=== PATIENT | male | born 1990 | race Two or more races ===

== ENCOUNTER → 2024-05-01 | Outpatient (CLI) | payer BC, SELFPAY ==
[2024-05-01 09:41] LABS: Misc Send Out* See Sep Rpt
[2024-05-01 10:49] LABS: Alanine Aminotransferase 61 U/L (10-49); Albumin, Serum 4.8 gm/dL (3.5-5.0); Albumin/Globulin Ratio 1.9 (1.2-2.2); Alkaline Phosphatase 83 U/L (46-116); Anion Gap 9 (7-16); Aspartate Amino Transferase 38 U/L (0-34); BUN/Creatinine Ratio 14 Ratio (12-20); Bilirubin,Direct 0.1 mg/dL (0.0-0.3); Bilirubin,Total 0.5 mg/dL (0.3-1.2); Blood Urea Nitrogen 14 mg/dL (9-23); Calcium 9.7 mg/dL (8.3-10.6); Calcium (Corrected) 9.7 mg/dL (8.5-10.1); Carbon Dioxide 26.9 mMol/L (20.0-31.0); Cardiac Risk Estimate 3.4 RATIO (4.0-6.7); Chloride 101 mMol/L (98-107); Cholesterol 216 mg/dL (132-200); Globulin 2.5 gm/dL (2.3-3.5); Glucose 190 mg/dL (74-106); HDL Cholesterol 64 mg/dL (40-60); LDL Cholesterol,Calculated 104 mg/dL (0-130); Osmolality,Calculated 279 (275-295); Potassium 3.9 mMol/L (3.4-5.1); Sodium 137 mMol/L (136-145); Total Protein 7.3 gm/dL (5.7-8.2); Triglycerides 238 mg/dL (30-150); eGFR > 60 See Note
[2024-05-01 10:53] LABS: Glucose Estimated Average 131 mg/dL (80-131); Hemoglobin A1C 6.2 % Hgb (4.8-6.0)
[2024-05-01 11:11] LABS: Creatinine MALB Rnd Ur 72 mg/dL (30-125); Microalbumin, Random Urine < 3 mg/L (0-300)
== END | disposition home or self-care (01) ==
LOC: COPL 09:03
PROVIDERS: PCP Specialist; Referring Provider Specialist; Visit Provider Specialist
DX: K76.0 Fatty (change of) liver, not elsewhere classified (principal); E11.65 Type 2 diabetes mellitus with hyperglycemia; E78.2 Mixed hyperlipidemia
CPT/HCPCS: 36415; 80053; 80061; 81596; 82043; 82105; 82248; 82570; 83036

== ENCOUNTER → 2024-08-14 | Outpatient (CLI) | payer BC, SELFPAY ==
[2024-08-14 11:31] LABS: Glucose Estimated Average 137 mg/dL (80-131); Hemoglobin A1C 6.4 % Hgb (4.8-6.0)
[2024-08-14 11:32] LABS: Alanine Aminotransferase 53 U/L (10-49); Albumin, Serum 4.5 gm/dL (3.5-5.0); Albumin/Globulin Ratio 1.8 (1.2-2.2); Alkaline Phosphatase 82 U/L (46-116); Anion Gap 9 (7-16); Aspartate Amino Transferase 32 U/L (0-34); BUN/Creatinine Ratio 7 Ratio (12-20); Bilirubin,Total 0.4 mg/dL (0.3-1.2); Blood Urea Nitrogen 7 mg/dL (9-23); Calcium 9.3 mg/dL (8.3-10.6); Calcium (Corrected) 9.3 mg/dL (8.5-10.1); Carbon Dioxide 28.2 mMol/L (20.0-31.0); Cardiac Risk Estimate 2.5 RATIO (4.0-6.7); Chloride 103 mMol/L (98-107); Cholesterol 135 mg/dL (132-200); Globulin 2.5 gm/dL (2.3-3.5); Glucose 307 mg/dL (74-106); HDL Cholesterol 54 mg/dL (40-60); LDL Cholesterol,Calculated 60 mg/dL (0-130); Osmolality,Calculated 289 (275-295); Potassium 4.4 mMol/L (3.4-5.1); Sodium 140 mMol/L (136-145); Triglycerides 105 mg/dL (30-150); eGFR > 60 See Note
[2024-08-14 11:50] LABS: Creatinine MALB Rnd Ur 98 mg/dL (30-125); Microalbumin, Random Urine < 3 mg/L (0-300)
== END | disposition home or self-care (01) ==
LOC: COPL 10:23
PROVIDERS: PCP Specialist; Referring Provider Specialist; Visit Provider Specialist
DX: E11.69 Type 2 diabetes mellitus with other specified complication (principal)
CPT/HCPCS: 36415; 80053; 80061; 82043; 82570; 83036

== ENCOUNTER 2024-08-29 10:40 | Emergency (ER) | payer BC, SELFPAY ==
[2024-08-29 10:42] VITALS: BP 146/98; PULSE 105; RESP 18; TEMP 37.2; O2SAT 96
[2024-08-29 10:45] VITALS: BMI 46.0
[2024-08-29 11:09] VITALS: BP 139/84; PULSE 98; RESP 18; TEMP 36.8; O2SAT 96
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
[2024-08-29 11:31] VITALS: O2SAT 98
--- NOTE | 2024-08-29 11:35 | XR_ITS ---
Examination: AP chest single view Technique one AP portable upright chest single view Date and time: August 29, 2024 at 12:11 PM Indications: Difficulty breathing today. Findings: Minor prominence left ventricle No pneumonia or pulmonary edema. Intact osseous structures Impression: No pneumonia or pulmonary edema
[2024-08-29 11:57] VITALS: PULSE 102
[2024-08-29] MEDS: ALBUTEROL RT 2.5 MG/3 ML NEBU INH (11:57)
[2024-08-29 11:59] VITALS: PULSE 101; RESP 18; O2SAT 100
[2024-08-29 13:25] VITALS: BP 134/85; PULSE 102; RESP 16; TEMP 36.7; O2SAT 95
== END 2024-08-29 13:39 | disposition home or self-care (01) ==
LOC: SERX 12:29
PROVIDERS: Emergency Provider Family Medicine; PCP Specialist
DX: T59.811A Toxic effect of smoke, accidental (unintentional), initial encounter (principal); R06.00 Dyspnea, unspecified
CPT/HCPCS: 71045; 94640; 99283

== ENCOUNTER → 2024-11-11 | Outpatient (CLI) | payer BC, SELFPAY ==
[2024-11-11 13:50] LABS: COVID-19 Antigen (In-House) Negative (Negative)
== END | disposition home or self-care (01) ==
LOC: COPL 11:45
PROVIDERS: PCP Specialist; Referring Provider Specialist; Visit Provider Specialist
DX: R05.8 Other specified cough (principal)
CPT/HCPCS: 87811

== ENCOUNTER → 2024-12-04 | Outpatient (CLI) | payer BC, SELFPAY ==
[2024-12-04 14:09] LABS: Glucose Estimated Average 151 mg/dL (80-131); Hemoglobin A1C 6.9 % Hgb (4.8-6.0)
[2024-12-04 14:14] LABS: Alanine Aminotransferase 66 U/L (10-49); Albumin, Serum 4.4 gm/dL (3.5-5.0); Albumin/Globulin Ratio 1.8 (1.2-2.2); Alkaline Phosphatase 67 U/L (46-116); Anion Gap 11 (7-16); Aspartate Amino Transferase 37 U/L (0-34); BUN/Creatinine Ratio 8 Ratio (12-20); Bilirubin,Total 0.9 mg/dL (0.3-1.2); Blood Urea Nitrogen 7 mg/dL (9-23); Calcium 9.9 mg/dL (8.3-10.6); Calcium (Corrected) 9.9 mg/dL (8.5-10.1); Carbon Dioxide 27.9 mMol/L (20.0-31.0); Cardiac Risk Estimate 2.6 RATIO (4.0-6.7); Chloride 101 mMol/L (98-107); Cholesterol 145 mg/dL (132-200); Creatinine (Component) 0.9 mg/dL (0.6-1.3); Globulin 2.5 gm/dL (2.3-3.5); Glucose 173 mg/dL (74-106); HDL Cholesterol 56 mg/dL (40-60); LDL Cholesterol,Calculated 67 mg/dL (0-130); Osmolality,Calculated 281 (275-295); Potassium 4.6 mMol/L (3.4-5.1); Sodium 140 mMol/L (136-145); Total Protein 6.9 gm/dL (5.7-8.2); Triglycerides 111 mg/dL (30-150); eGFR > 60 See Note
[2024-12-04 14:25] LABS: Creatinine MALB Rnd Ur 112 mg/dL (30-125); Microalbumin Creat Ratio 65 mg/gCrea (<30); Microalbumin, Random Urine 73 mg/L (0-300)
== END | disposition home or self-care (01) ==
LOC: COPL 12:34
PROVIDERS: PCP Specialist; Referring Provider Specialist; Visit Provider Specialist
DX: E11.69 Type 2 diabetes mellitus with other specified complication (principal)
CPT/HCPCS: 36415; 80053; 80061; 82043; 82570; 83036

== ENCOUNTER → 2025-02-24 | Outpatient (CLI) | payer BC, SELFPAY ==
--- NOTE | 2025-02-24 | XR_ITS ---
Examination: Knee, left, 3 views Technique: Knee AP, lateral, oblique 3 views Date and time of exam: February 24, 2025, 1250 hours INDICATIONS: Left knee pain beginning 4 days ago. FINDINGS: Mild narrowing medial patellofemoral joints No fracture or dislocation IMPRESSION: Mild narrowing medial patellofemoral joints
--- NOTE | 2025-02-24 | XR_ITS ---
EXAMINATION: Cervical spine, 5 views Technique: Cervical spine AP, AP odontoid, lateral, bilateral obliques, 5 views Exam date and time: February 24, 2025, 12:50 p.m. INDICATIONS: Neck pain beginning 4 days ago radiating down the right shoulder. FINDINGS: Straightening normal cervical lordosis No cervical fracture No cervical disc narrowing No neural foraminal stenosis Intact odontoid IMPRESSION: No cervical disc narrowing or neuroforaminal stenosis As clinically warranted, MRI cervical spine without contrast follow-up would best assess for soft tissue disc protrusion producing radicular right shoulder pain
--- NOTE | 2025-02-24 | XR_ITS ---
EXAMINATION: Bilateral AP knees single view TECHNIQUE: Weightbearing AP bilateral knees single view Date and time: February 24, 2025, 1304 hours INDICATIONS: Left knee pain beginning 4 days ago. FINDINGS: Mild to moderate narrowing medial joint spaces No fractures or dislocations IMPRESSION: Mild to moderate narrowing medial joint spaces
== END | disposition home or self-care (01) ==
PROVIDERS: PCP Specialist; Referring Provider Specialist; Visit Provider Specialist
DX: M54.2 Cervicalgia (principal); M25.862 Other specified joint disorders, left knee; M25.861 Other specified joint disorders, right knee
CPT/HCPCS: 72050; 73560; 73562; 73564; 73565

== ENCOUNTER 2025-03-20 17:11 | Emergency (ER) | payer BC, SELFPAY ==
[2025-03-20 17:11] VITALS: BMI 44.6
[2025-03-20 18:33] VITALS: BP 151/87; PULSE 77; RESP 18; TEMP 37.1; O2SAT 98
[2025-03-20] MEDS: LIDOCAINE HCL 1% 20 ML VIAL IM (19:03)
--- NOTE | 2025-03-20 19:37 | PD.EDWOUND ---
ED Wound/Laceration-RME/HPI General Chief Complaint: Wound/Laceration Stated Complaint: CUT MY L MIDDLE FINGER W/ KNIFE CUTTING TRI-TIP Time Seen by Provider: 03/20/25 18:51 Source: patient Arrival date/time: 03/20/25 17:11 This is a case of 34-year-old male with no medical history came into the emergency room due to finger laceration history of present illness started 1 hour prior to arrival in the emergency room patient is cutting with a knife accidentally cut his third finger left hand sustaining injury patient tetanus shot is up-to-date Limitations: no limitations Related Data Previous Rx's ?Medication ?Instructions ?Recorded cephalexin 500 mg capsule 500 mg PO Q8H #30 caps 03/20/25 ibuprofen 800 mg tablet 800 mg PO Q8H PRN pain #20 tabs 03/20/25 mupirocin 2 % topical ointment 1 applic topical BID #22 grams 03/20/25 (Centany) Allergies Allergy/AdvReac Type Severity Reaction Status Date / Time No Known Allergies Allergy Verified 03/20/25 17:14 Review of Systems Review of Systems Systems Reviewed: All systems reviewed, normal except as documented Past Medical History Past Medical History NEUROLOGIC: Negative Neurological Disorders CARDIAC: Positive Cardiac Disorders, Hypercholesterolemia and Hypertension; Negative Congestive Heart Failure RESPIRATORY: Positive Bronchitis; Negative Chronic Obstructive Pulmonary Disease (COPD) GASTROINTESTINAL: Negative Gastrointestinal Disorders GENITOURINARY: Negative Genitourinary Disorders or Renal Disease REPRODUCTIVE: Negative Testicular Cancer MUSCULOSKELETAL: Positive Musculoskeletal Disorders, Arthritis and Fractures (R 3rd digit, R ankle) ENDOCRINE: Positive Endocrine Disorders and Diabetes Mellitus Type 2; Negative Diabetes Mellitus Type 1 HEMATOLOGIC: Negative Blood Disorders OTHER HISTORY: Positive Chicken Pox; Negative Blood Transfusions, Cancer or Testicular Cancer Surgical History SURGICAL: Negative Vasectomy Social History SMOKING STATUS: Never smoker SUBSTANCE USE: does not use ED Exam General Limitations: Present no limitations General appearance: Present alert, in no apparent distress and other (Patient is awake alert oriented not in distress nontoxic looking well-hydrated well-nourished not in distress nontoxic look) Head Head exam: Present atraumatic Eye Eye exam: Present normal appearance, PERRL and EOMI ENT ENT exam: Present normal exam, normal oropharynx and mucous membranes moist Neck Neck exam: Present normal inspection, full ROM and trachea midline Chest Chest inspection: Present normal inspection and symmetric chest wall rise Respiratory Respiratory exam: Present normal lung sounds bilaterally Cardiovascular Cardiovascular exam: Present regular rate, normal rhythm and normal heart sounds Abdominal Exam Abdominal exam: Present soft and normal bowel sounds Extremities Exam Extremities exam: Present normal inspection and full ROM Back Exam Back exam: Present normal inspection and full ROM Neurological Exam Neurological exam: Present alert, oriented X3, CN II-XII intact, normal gait and reflexes normal; Absent motor sensory deficit Psychiatric Psychiatric exam: Present normal affect and normal mood Skin Skin exam: Present warm, dry, intact, normal color and other (Patient sustained a 2 cm flap laceration distal third of the third finger left hand minimal bleeding no foreign body no bone or tendon injury no abscess no cellulitis nail intact ROM intact pulses were full and equal capillary refill less than 2 seconds sensory symptom) Course Quality Measures none Orders Category Date Time Status Lidocaine 1% Vial 20 ml [Xylocaine 1% 20 ML] Med 03/20/25 18:59 Discontinued 20 ml IM X1 ONE Vital Signs Vital signs: Vital Signs Temperature 98.7 F 03/20/25 18:33 Pulse Rate 77 03/20/25 18:33 Respiratory Rate 18 03/20/25 18:33 Blood Pressure 151/87 H 03/20/25 18:33 Pulse Oximetry (%) 98 03/20/25 18:33 Oxygen Delivery Method Room Air 03/20/25 18:33 Oxygen saturation is 98% on room air normal PROCEDURES: Laceration Laceration 1: Site: other (Third finger left hand) Side (If applicable): left Size (cm): 2 Description: flap Depth: simple, single layer Local Anesthetic: lidocaine 1% Amount of anesthesia used (mL): 4 Pre-repair: wound explored, irrigated extensively and deep structures intact Skin layer closed with: nylon Suture size (cm): 5-0 Number of sutures: 2 Technique: simple, interrupted Wound / Laceration MDM Narrative MDM Narrative:: This is a case of 34-year-old male with no medical history came into the emergency room due to finger laceration history of present illness started 1 hour prior to arrival in the emergency room patient is cutting with a knife accidentally cut his third finger left hand sustaining injury patient tetanus shot is up-to-date physical examination patient is awake alert oriented not in distress nontoxic looking well-hydrated well-nourished vital signs stable BP stable not tachycardic not tachypneic afebrile nonhypoxic patient sustained a flap laceration approximately 2 cm minimal bleeding no foreign body no bone or tendon injury nail is intact ROM intact pulses were full and equal capillary refill less than 2 seconds sensory is intact laceration repair was performed patient tolerated well the procedure procedure done via universal protocol and via sterile technique patient will follow-up with PCP in 2 days for reevaluation in 10 days for removal of suture for any worsening symptoms or any signs and symptoms of infection return precaution to the ER is advised Patient was discharged with comfortable condition walking with stable gait. Patient verbalized no further complains explained diagnosis and answered patient question. Patient is comfortable with the proposed management plan including the need to follow up with his/her primary care physician and any specialist if applicable Discussed patient for any urgent condition or worsening sx, He/She needed to go to emergency room immediately or call 911. Patient acknowledge the responsibility to follow up as instructed and to monitor her/his symptoms. For any persistence of the symptoms for more than 3-5 days return precaution advised. Discussed the result of the test and was given printed discharge instruction Patient data External records reviewed:: [facility] previous records Clinical information provided by:: patient Social determinants that could affect healthcare access:: none Patient has the following chronic illnesses:: None How is presenting disease/condition affected by chronic disease/condition?: no chronic disease Evaluation data The following diagnostics were reviewed and interpreted by me:: other (specify) (None) Lab and/or radiology exams considered but not ordered:: None Interpretation Summary: None Medications / Prescriptions Medications or Prescriptions considered but not ordered:: Given Medication administrations:: Medication Administration History Discontinued Medications Lidocaine HCl (Lidocaine Hcl 1% 20 Ml Vial) 20 ml IM X1 ONE Stop: 03/20/25 19:00 Last Admin: 03/20/25 19:03 Dose: 20 ml Documented By: KIMBERLY Comments: given by provider malloy Given Consultations Consultation(s) initiated? (list below): No Diagnosis Wound Differential Diagnosis: laceration Most likely diagnosis given after review of the tests above:: Finger laceration Admission Indicated Admission indicated?: not indicated Explain why admission is indicated or not indicated:: Not indicated Admission Request Was there a request for admission?: No Admission Attestation Admission request attestation: Not indicated Disposition Plan Disposition Plan: Discharge Discharge Attestation Discharge Attestation: The patient and all family members were given an opportunity to ask questions and understood the discharge instructions. Discharge instructions specifically effects, indications for sooner follow up or return to the emergency department, and the expected course of current diagnosis. Patient condition: Stable Discharge Plan Plan Patient Disposition: HOME (Self Care) Patient condition on transfer: Stable Prescriptions/Referrals Prescriptions/Med Rec: New cephalexin 500 mg capsule 500 mg PO Q8H Qty: 30 0RF ibuprofen 800 mg tablet 800 mg PO Q8H PRN (Reason: pain) Qty: 20 0RF mupirocin [Centany] 2 % ointment 1 applic topical BID Qty: 22 0RF Problem List Clinical Impression: Finger laceration Patient/Caregiver Discharge Instructions Education Materials: Suture Care, ED Laceration: All Closures Additional Instructions: Follow-up with your primary care physician in 2 days for reevaluation and wound check worsening symptoms or any emergent concerns such as redness swelling discharge from the wound pain fever chills return to the emergency room immediately or call 911 he also need to return to your primary care physician in 10 days for removal of suture wound care daily finish the course of antibiotic as advised Print Language: [place] Stand Alone Forms: Leida Award Info., Patient Portal Info Letter 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 Rasheed De La Garza
== END 2025-03-20 20:12 | disposition home or self-care (01) ==
LOC: SERX 19:49
PROVIDERS: Emergency Provider Emergency Medicine
DX: S61.218A Laceration without foreign body of other finger without damage to nail, initial encounter (principal); W26.0XXA Contact with knife, initial encounter
CPT/HCPCS: 12002; 96372; 99281; J3490